=== PATIENT | female | born 1970 | race Caucasian/White ===

== ENCOUNTER 2020-05-13 12:25 | Outpatient (REF) | payer OTHER, SELFPAY | END 2020-05-13 12:26 | disposition home or self-care (01) | LOC: HO.LAB 12:25 | PROVIDERS: Visit Provider Internal Medicine | DX: Z20.828 Contact with and (suspected) exposure to other viral communicable diseases (principal) | CPT/HCPCS: C9803; U0003 ==

== ENCOUNTER 2021-04-06 10:50 | Emergency (ER) | payer OTHER, SELFPAY ==
--- NOTE | ~2021-04-06 | US_ITS ---
EXAMINATION: RIGHT KNEE ULTRASOUND CLINICAL INFORMATION: Right knee swelling inferior to the patella and around the popliteal fossa. COMPARISON: September 10, 2018 TECHNIQUE: Targeted ultrasound evaluation FINDINGS: Within the right popliteal fossa there is a fluid collection with some septations within it measuring approximately 6.2 x 3.8 x 2.3 cm in size with the appearance of a complex right popliteal fossa cyst. No soft tissue component is identified. No internal vascularity is seen. No focal abnormality was appreciated inferior to the patella. US/US extremity nonvascular IMPRESSION: Large popliteal fossa cyst which had been present on study of September 10, 2018. No suspicious mass identified.
--- NOTE | ~2021-04-06 | XR_ITS ---
EXAMINATION: XR KNEE, RIGHT CLINICAL INFORMATION: Atraumatic swelling of the right knee COMPARISON: None TECHNIQUE: Four views of the right knee. FINDINGS: There is no evidence of acute fracture or dislocation of the right knee. Right knee joint spaces are maintained. Minimal spurring is seen at the patellofemoral joint. There is a small amount of suprapatellar fluid present. XR/XR knee RT 4V IMPRESSION: No significant bony abnormality of the right knee identified. Minimal knee effusion.
[2021-04-06 11:18] VITALS: BP 136/78; PULSE 82; RESP 18; TEMP 36.8; O2SAT 99; BMI 28.1
--- NOTE | 2021-04-06 12:31 | ED.GENADULT ---
HPI - General Adult General Chief complaint: General Medical Stated complaint: cyst, burning sensation both legs Time Seen by Provider: 04/06/21 11:33 Source: patient Mode of arrival: ambulatory Limitations: no limitations History of Present Illness HPI narrative: 50 year old female pmhx significant for restless legs syndrome, anxiety, Wood cyst presents to the emergency department with 1 year of progressively worsening right knee, and posterior knee swelling. She states years ago she was told she had a Wood cyst to the right posterior knee. She feels like this cyst is growing, she states she feels a burning/pressure-like sensation. She states she decided to come in today because she finally got insurance, and her son told her to come in. She would also like medication for her restless leg syndrome, becuase it is making it hard for her to sleep at night. Denies fevers,chills, SOB, nausea, vomiting, CP, recent sick contacts, recent travel, birthcontrol use. Patient is a daily smoker not an IV drug user. MD complaint: right knee pain Onset (ago): year(s) (1) Location: right (knee ) Radiation: non-radiation Severity scale (1-10): 1 Quality: burning Pain Consistency: constant Relieving factors: none Exacerbating factors: none Associated symptoms: denies other symptoms Treatments prior to arrival: none Related Data Previous Rx's Medication Instructions Recorded gabapentin 300 mg capsule 300 mg PO BEDTIME 4 Days #4 cap 04/06/21 Allergies Allergy/AdvReac Type Severity Reaction Status Date / Time No Known Allergies Allergy Unknown N/A Unverified 02/19/20 19:06 [NO KNOWN ALLERGIES] Review of Systems Review of Systems: Constitutional : No Weight loss, No Fever, No Chills, No Night Sweats, No Fatigue, NoMalaise ENT/Mouth: No ear pain, No sore throat, No Difficulty swallowing Cardiovascular : No Chest Pain, No SOB, No Dyspnea on Exertion, No Orthopnea, NoEdema, No Palpitations Respiratory : No Cough, No Sputum, No Wheezing, No Dyspnea Gastrointestinal : No Nausea, No Vomiting, No abdominal pain, No Diarrhea, No blood streaked emesis, No coffee-ground emesis, No gross hematemesis, No blood streak stool, No gross hematochezia, No Melena Genitourinary : No irregular bleeding, No Dysuria, No Urinary Frequency, No Hematuria,No Urinary Incontinence, No Urgency, No Flank Pain Musculoskeletal : + right knee joint pain, + Joint Swelling right knee, + swelling behind right knee Skin : No Skin Lesions, No rash Neuro : No Weakness, No Numbness, No Paresthesias, No Loss of Consciousness, NoDizziness, No Headache Psych : No Social Issues, + Anxiety Yes all other systems are reviewed and are negative [facility] Past Medical History Attestation statement: The following information was validated with the patient. Source: old records reviewed and nursing notes reviewed Social History Social History Advance Directives: No Physical Exam Vital Signs: Vital Signs: Last Vital Signs Temp 98.3 F 04/06/21 11:18 Pulse 82 04/06/21 11:18 Resp 18 04/06/21 11:18 BP 136/78 04/06/21 11:18 Pulse Ox 99 04/06/21 11:18 Body Mass Index 28.1 vital signs have been reviewed as normal and appeared to be correct. Blood pressure normal. Heart rate normal. Respiration rate normal. Temperature normal. Oxygen saturation normal. Appearance: Alert. Oriented X3. No acute distress. Head: Normal external exam. Normocephalic. Atraumatic. No Choi signs noted. No raccoon eyes noted CVS: Normal heart rate and rhythm. Heart sound normal. Pulses normal throughout. No murmurs/rales/gallops. Respiratory: No respiratory distress. Painless inspiration. Breath sounds normal. No wheezes/rales/rhonchi noted. Chest nontender. No accessory muscle usage noted or decreased air movement noted. Abdomen: Soft and nontender. Bowel sounds normal in all 4 quadrants. No distention noted. No organomegaly noted. No visible injury noted. Back: No CVA tenderness. Full range of motion noted. No rashes/lesion/induration/fluctuance or signs of infection noted. Skin: Skin warm and dry. Normal skin color. Normal skin turgor. No rashes/lesions/lacerations noted. Extremities: No lower extremity edema. Extremities exhibit normal range of motion. Extremities nontender. + soft, non tender, area to right posterior knee and lateral aspect of right knee (abscess versus cyst versus lipoma) Left knee and popliteal fossa normal. To the right knee there is no obvious ligamentous or tendon injury. The Achilles tendon is intact it is not ruptured. Neuro: Oriented X 3. No motor deficit. No sensory deficit. Reflexes normal. Normal steady gait. No focal neuro deficits noted. Vascular: + radial pulses/+ 2 distal pedal pulses/+2 dorsalis pedis b/l. Normal cap refill. No cyanosis noted to upper extremity nails and lower extremity toes nails. Course Reevaluation(s) Reevaluation #1: Knee xray shows knee effusion, however this is likley a cyst vs an effusion. OWEN bandage has been aplied to the area. Ultrasound of the right knee shows a large popliteal fossa cyst. It appears as though this is not new, it was seen in previous studies, on 09/10/2018. The ultrasound did not show any suspicious masses. At this time patient will be given an Owen wrap. She will be discharged home on medication for restless leg syndrome. But she has been advised that this is for a few days supply, she has been encouraged to find a primary care provider who can follow her medical issues. She has been advised return to the emergency department with new or worsening symptoms. She will also be provided with the general surgeons number, for possible drainage of Wood cyst if they find it necessary. She is safe for discharge home with PCP follow-up. She will be given information about PCPs in the area, which she can contact to make an appointment as a new patient. Time: 13:52 Medical Decision Making [facility] Narrative Medical decision making narrative: 1247 50 yo female pmhx restless leg syndrome, R. bakers cyst and anxiety presents to the ED with increased swelling to anterior later and to the popliteal fossa X1 year. She states it has been progressively getting larger over the past year. She also states that from time to time she feels a burning sensation, however it is not painful. Patient is a current daily smoker. Not on control denies recent long travel. Denies chest pain, shortness breath, fevers, chills. Not an IV drug user. Patient states she waited a year to be seen, because she did not have insurance. Upon physical examination there is a soft non tender, area to right poserior knee and lateral aspect of right knee (abscess versus cyst versus lipoma) Left knee and popliteal fossa normal. There are no overlying skin changes, or erythema. has full range of motion to bilateral lower extremities, and knee. 2+ pulses equal in bilateral lower extremities. Capillary refill normal. Homans sign negative. Lungs are clear to auscultation bilaterally. S1 and S2 appreciated free of murmurs. Sensory and motor intact upper and lower and extremities. No focal neuro deficits. Plan at this time is to obtain an x-ray of the right knee, and an ultrasound to rule out cyst versus lipoma. This is unlikely a DVT, patient is saturating well on room air 99%, she is not tachycardic. She denies recent travel, control use. Negative Alicia sign. Symptoms, and physical examination are not consistent with DVT. Imaging Data right knee xray : Attestation: I personally reviewed and interpreted this imaging study as follows: Radiologist's impression: XR/XR knee RT 4V IMPRESSION: No significant bony abnormality of the right knee identified. ? Minimal knee effusion. ? US right knee : Attestation: I personally reviewed and interpreted this imaging study as follows: Radiologist's impression: US/US extremity nonvascular IMPRESSION: Large popliteal fossa cyst which had been present on study of September 10, 2018. No suspicious mass identified.? Discharge Plan Discharge Clinical Impression: Effusion of knee joint right Wood cyst Qualifiers: Laterality: right Qualified Code(s): M71.21 - Synovial cyst of popliteal space [Wood], right knee Patient Disposition: Home, Self-Care Instructions: Bakers Cyst (ED), Swollen Joint (ED) Additional Instructions: Follow-up with a primary care provider, you will be given a list of primary care is in the area. It is important that you call to schedule an appointment as a new patient. Wear Owen bandages instructed. Follow-up with general surgery. Return to the emergency department with new or worsening symptoms Prescriptions: New gabapentin 300 mg capsule 300 mg PO BEDTIME 4 Days Qty: 4 RF: 0 Referrals: Blake Arriola MD [Physician] - 1 week Physician,None [Primary Care Provider] - 2 days Stand Alone Forms: Work/School Release Interventions: ED Discharge Assessment Last Done: 04/06/21 14:21 Discharge Date/Time: 04/06/21 14:21
== END 2021-04-06 14:21 | disposition home or self-care (01) ==
PROVIDERS: Emergency Provider Emergency Medicine
DX: M71.21 Synovial cyst of popliteal space [Baker], right knee (principal); G25.81 Restless legs syndrome
CPT/HCPCS: 73564; 76882; 99283; 99284